=== PATIENT | male | born 1945 | race Caucasian/White ===

== ENCOUNTER 2017-10-30 15:03 | Inpatient (IN) | payer MEDICARE ==
[~2017-10-30] VITALS: Ht 170.2 cm; Wt 80.4 kg
--- NOTE | ~2017-10-30 | H ---
[facility] [place] [address] HISTORY AND PHYSICAL Name: DONTE DOBBS Room #: 211-P [facility] IN M.R.#: [id number] Admission: 10/30/17 Attend Phys: Manish Cole MD, FA Discharge: 11/01/17 Date of : 49 Report #: [id number] THIS REPORT FOR: //name// CC: Manish Evans DATE OF SERVICE: 10/30/2017 PRIMARY CARE PHYSICIAN: Dr. Devante Evans in [place], [place] HISTORY OF PRESENT ILLNESS: The patient is a 72-year-old white male who was admitted after he was noted to be in heart block. The patient has a known history of a right bundle-branch block. Previous coronary artery calcium score was abnormal. However, he had a nuclear stress test in 2010 that showed no evidence of ischemia. A couple of years ago, he was having knee surgery and because of urinary difficulty, had an ultrasound that showed evidence of an abdominal aortic aneurysm. He eventually had an abdominal aortic aneurysm stent graft placed at [facility] by Dr. Cannon. He has been followed by Dr. Cannon since that time. This past year he had his gallbladder removed in [place], [place]. Recently, the patient apparently had flu-like symptoms with a cough that resolved. However, recently he has felt fatigued. On his fit day his heart rate was noted to be in the 40s. He went to see his primary care physician in [place] today. He was noted to have a heart rate in the 40s. His ECG was faxed to my office. He was found to have evidence of heart block. I recommended he come to the hospital and be admitted for pacemaker insertion. The patient does have occasional chest pain, although it is not exertional. He does get short of breath when he exerts himself, has had no edema. He denied any palpitations, but has felt fatigued recently. PAST MEDICAL HISTORY: Otherwise significant for back surgeries, hernia repair, hemicolectomy for polyp. He has a history of hypertension, chronic back pain. MEDICATIONS: Consists of aspirin, hydrochlorothiazide, oxybutynin for incontinence, oxycodone for chronic back pain, enalapril, Flomax. ALLERGIES: He has no known drug allergies. FAMILY HISTORY: His mother had a heart attack. SOCIAL HISTORY: He is . He and his live in [place], [place]. He is retired from [employer]. Smokes half pack of cigarettes a day. No alcohol abuse. REVIEW OF SYSTEMS: He has had no history of stroke. He apparently did have a carotid Doppler by Dr. Cannon in the past. He denies chronic cough. No history of peptic ulcer disease, liver disease, kidney disease. He does wear glasses. He has chronic back pain, prostatism. No chronic skin condition. No [facility] [address] [place] [address] HISTORY AND PHYSICAL Name: DONTE DOBBS Room #: 211-P [facility] IN M.R.#: [id number] Admission: 10/30/17 Attend Phys: Manish Cole MD, FA Discharge: 11/01/17 Date of : 49 Report #: [id number] psychiatric illness. PHYSICAL EXAMINATION: GENERAL: Revealed an elderly male, appeared in no distress. VITAL SIGNS: His blood pressure 130/60, pulse is 36. HEENT: Mucous members are moist. He is anicteric. Conjunctivae pink. NECK: Supple. No jugular vein distention. No carotid bruits. CHEST: Clear to auscultation. CARDIAC: Regular bradycardia, grade 2 systolic ejection murmur. ABDOMEN: Soft. EXTREMITIES: Had no edema. Dorsalis pedis pulse 1+ bilaterally. SKIN: Cool and dry. NEUROLOGIC: Nonfocal. LYMPH: No adenopathy. MUSCULOSKELETAL: No joint effusion. His ECG from earlier today shows sinus rhythm with right bundle-branch block, left anterior fascicular block and episodes of 2:1 AV block consistent with Mobitz type 2 second degree AV block. LABORATORY DATA: Lab work today, he has a white blood cell count 8.7, hemoglobin 14.7. Urinalysis is negative for protein, 1+ blood, positive nitrites, 2+ leukocytes. There are few squamous cells. IMPRESSION AND RECOMMENDATIONS: 1. Mobitz type 2 second degree atrioventricular block. Recommend permanent pacemaker. 2. Hypertension. The patient is on a diuretic and MONAE inhibitor. 3. Previous placement of an abdominal aortic aneurysm stent graft. The patient is followed by Dr. Cannon. 4. Tobacco abuse. 5. Chronic back pain. 6. Prostatism. 7. Pyuria. Recommend urine culture. <ELECTRONICALLY SIGNED> By: Manish Cole MD, [facility] 11/01/17 1305 1717 1735 Manish Cole MD, FAC /nt
--- NOTE | ~2017-10-30 | CATHLAB ---
[facility] [address] [place] [address] INVASIVE PROCEDURE REPORT Name: DONTE DOBBS Room #: 211-P [facility] IN ..#: [id number] Admission: 10/30/17 Attend Phys: Manish Cole MD Discharge: Date of : 49 Date of Service: 10/31/17 1544 Report #: [id number] THIS REPORT FOR: //name// APPROVED REPORT Study performed: 10/31/2017 07:19:42 Patient Status: In-Patient Room #: Exam: Insertion of Dual Chamber Permanent Pacemaker Indications: 2nd Degree Mobitz II The patient is a 72 year-old male with a history of 2nd Degree Mobitz II. Procedure The patient underwent informed consent. We discussed the details of the procedure including the risks, which include, but not limited to bleeding, infection, vascular damage, cardiac perforation, and pneumothorax. He understood these risks and was willing to proceed. As such, he was brought to the EP/Cardiac Catheterization laboratory in a fasting and sedated state and prepped and draped in a sterile fashion, received IV antibiotics prior to initiation of the procedure and a venogram was performed showing patency of the left axillary vein. The patient underwent conscious sedation, with no related complications. The patient was brought to the EP/Cardiac Catheterization laboratory and the left chest and shoulder were prepped and draped in a sterile manner. During this case, Fluoroscopy and low osmolar contrast were used for imaging. The left subclavian region was infiltrated with 2% Lidocaine subcutaneous anesthesia. A transverse incision was made in the left upper chest cavity. The subcutaneous pocket was formed via blunt dissection. Percutaneous venous access was achieved and an introducer sheath was inserted into the left Subclavian vein. Sheaths were positions using the modified Seldinger technique Through the introducer sheaths the atrial and ventricular lead wires were positioned in the right atrial appendage and right ventricular apex respectively. Utilizing fluoroscopic guidance, the atrial and ventricular lead wires were advanced over the wires and positioned in the right atria and right ventricle respectively. Capturing and sensing thresholds were verified. [facility] [address] [place] [address] INVASIVE PROCEDURE REPORT Name: DONTE DOBBS Room #: 211-P [facility] IN ..#: [id number] Admission: 10/30/17 Attend Phys: Manish Cole MD Discharge: Date of : 49 Date of Service: 10/31/17 1544 Report #: [id number] Electrode Parameters P Wave: 3.3 mv R Wave: 8.0 mv Atrial Threshold: 0.9 v Ventricular Threshold: 1.0 v Atrial Resistance: 775 ohm Ventricular Resistance: 455 Dual Chamber The atrial and ventricular leads were then secured using 2.0 ethibond sutures. The subcutaneous pocket was irrigated with ancef antibiotic solution.The atrial and ventricular leads were attached to the appropriate receptacles on the pulse generator and set screws firmly tightened to insure adequate contact and stability. The lead and pulse generator were placed into the subcutaneous pocket. Sharp and sponge counts were confirmed to be correct. At this time the pocket was closed subcutaneously with a 0 Vicryl and the skin was closed with a 4.0 Vicryl. The operative site was dressed in sterile fashion with skin affix and the patient was transferred to the floor in stable condition. Complications The patient tolerated the procedure well and there were no complications associated with the procedure. Findings Specimens Removed: No Estimated Blood Loss: 15 cc Conclusion successful placement of a dual chamber pacemaker and leads <ELECTRONICALLY SIGNED> By: Manish Cole MD, FACC 10/31/17 1544 1544 1544 Manish Cole MD, FACC /INF
--- NOTE | ~2017-10-30 | D ---
[facility] [address] [place] [address] DISCHARGE SUMMARY Name: DONTE DOBBS Room #: 211-P [facility] IN .R.#: [id number] Admission: 10/30/17 Attend Phys: Manish Cole MD, FA Discharge: 11/01/17 Date of : 49 Report #: [id number] THIS REPORT FOR: //name// CC: Manish Evans MD DATE OF SERVICE: 11/01/2017 DISCHARGE DIAGNOSES: 1. Mobitz type 2 second degree AV block. 2. Hypertension. 3. Previous placement of an abdominal aortic aneurysm stent graft. 4. Tobacco abuse. 5. Chronic back pain. 6. Urinary tract infection. CONSULTANTS: None. PROCEDURES: Placement of a permanent MRI compatible dual chamber Biotronik pacemaker. HISTORY OF PRESENT ILLNESS: The patient is a 72-year-old white male who was admitted to the hospital after he was noted to be in second-degree AV block. The patient has a known history of a left anterior fascicular block and right bundle branch block. Previous nuclear stress test in 2010 showed no ischemia. He had previous placement of an abdominal aortic aneurysm stent graft at [facility] by Dr. Cannon. A year ago he underwent cholecystectomy in [place], [place]. Recently, he noticed a cough that resolved. However, recently he felt fatigued and on his Fitbit noticed his heart rate was in the 40s. He went to see his primary care physician in [place], [place]. He was noted to have Mobitz type 2 second degree AV block with a heart rate in the 40s. I recommended that he be admitted to the hospital for pacemaker insertion. The patient noted occasional chest pain, but it was nonexertional. He does get short of breath with exertion, but has had no edema. Denied palpitations. PAST MEDICAL HISTORY: Otherwise significant for 4 back surgeries, chronic back pain, hernia repair, hemicolectomy for polyp, hypertension. He has a history of difficulty voiding and has to perform straight catheterization intermittently twice a day. MEDICATION: On admission included aspirin, hydrochlorothiazide, oxybutynin, oxycodone, enalapril, Flomax. ALLERGIES: He had no known drug allergies. [facility] [address] [place] [address] DISCHARGE SUMMARY Name: DONTE DOBBS Room #: 211-P [facility] IN [facility].#: [id number] Admission: 10/30/17 Attend Phys: Manish Cole MD, Discharge: 11/01/17 Date of : 49 Report #: [id number] PHYSICAL EXAMINATION: VITAL SIGNS: On admission, his blood pressure 130/60, pulse is 36. CHEST: Clear to auscultation. CARDIAC: Regular bradycardia. ABDOMEN: Soft. EXTREMITIES: Had no edema. LABORATORY DATA: ECG showed sinus rhythm, right bundle branch block, left anterior fascicular block, episodes of 2:1 AV block consistent with Mobitz type 2 second degree AV block. His workup, he had a chest x-ray on admission that showed normal heart size and clear lung obando. His lab work, sodium 140, creatinine 1.0, potassium 4.0, glucose 88. Liver function studies were normal. Cholesterol 152, triglyceride 179, HDL 25, LDL 92. White blood cell count 8.7, hemoglobin 14.7. TSH 2.8. Urinalysis was positive for leukocytes and many bacteria. HOSPITAL COURSE: The patient was felt to have high-degree AV block. There was no obvious cause. I recommended pacemaker insertion. The following day, he was taken to the EP lab and I inserted a permanent dual chamber MRI compatible Biotronik pacemaker. He tolerated the procedure well. He remained AV sequentially paced after the pacemaker was inserted. Prior to discharge, he was ambulating, had no further complaints. He continued to straight catheterize himself. Urine cultures showed greater than 100,000 gram-negative rods. The patient was felt to have a urinary tract infection. Followup chest x-ray after the pacemaker was inserted showed no pneumothorax. There was normal positioning of the atrial and ventricular leads. The patient was discharged on his home medications that consisted of one aspirin a day, hydrochlorothiazide, oxybutynin, oxycodone, enalapril and Flomax. I strongly recommended he attempt to stop smoking. He is also discharged on Cipro 250 mg twice day for 5 days because of urinary tract infection. He was discharged to return to care of Dr. Evans for routine medical care. He was sent home with a transmitter so that his pacemaker can be interrogated every night at 2:00 a.m. He is scheduled to see me back in the cardiology clinic in 2 weeks for followup of his pacemaker. He continues to see Dr. Cannon in followup of his abdominal aortic aneurysm stent graft. I did recommend he follow up with his urologist because of his urinary tract infection. At the time of discharge, the patient was ambulating, eating well and has no further complaints. He was P-wave sensing and ventricular capture on the monitor. His vital signs, he had a blood pressure of 140/80, pulse was 60 and he was afebrile. He did undergo an echocardiogram during his hospitalization that showed an ejection fraction of 60%, left atrial enlargement, aortic sclerosis. <ELECTRONICALLY SIGNED> By: Manish Cole MD, [facility] 11/02/17 0812 1259 1319 Manish Cole MD, FACC /nt
--- NOTE | ~2017-10-30 | 2DMMODE ---
[facility] [address] [place] [address] 2 D/M-MODE ECHOCARDIOGRAM Name: DOBBSDONTE Room #: 211-P [facility] IN M.R.#: [id number] Admission: 10/30/17 Attend Phys: Manish Cole MD Discharge: Date of : 49 Date of Service: 10/31/17 1531 Report #: [id number] THIS REPORT FOR: //name// APPROVED REPORT Study performed: 10/31/2017 13:38:24 EXAM: Comprehensive 2D, Doppler, and color-flow Echocardiogram Patient Location: Bedside Room #: 211 Status: routine BSA: 1.91 HR: 65 bpm BP: 136/91 mmHg Rhythm: Pacemaker Other Information Study Quality: Adequate Technically limited study due to lung artifact and limited mobility s/p pacemaker placement.. Indications Heart block status post pacemaker placement. 2D Dimensions RVDd: 37.55 mm LVEF(%): 69.09 (>50%) IVSd: 9.64 (7-11mm) LVOT Diam: 21.33 (18-24mm) LVDd: 48.74 mm PWd: 10.28 (7-11mm) LVDs: 29.80 (25-40mm) Aortic Root: 35.44 mm Rooney's LVEF: 69.09 % Volumes Left Atrial Volume (Systole) Single Plane 4CH: 44.75 mL Single Plane 2CH: 64.91 mL LA ESV Index: 32.00 mL/m2 Aortic Valve AoV Peak Dougie.: 1.72 m/s AO Peak Gr.: 13.05 mmHg LVOT Max P.96 mmHg LVOT Max V: 1.22 m/s JF Vmax: 2.53 cm2 Mitral Valve [facility] [place] [address] [place] [address] 2 D/M-MODE ECHOCARDIOGRAM Name: RINKUDONTE Mark Room #: 211-P ADM IN ..#: [id number] Admission: 10/30/17 Attend Phys: Manish Cole MD Discharge: Date of : 49 Date of Service: 10/31/17 1531 Report #: [id number] E/A Ratio: 0.8 MV Decel. Time: 230.50 ms MV E Max Dougie.: 0.69 m/s MV A Dougie.: 0.84 m/s MV PHT: 66.85 ms IVRT: 106.11 ms Pulmonary Valve PV Peak Dougie.: 1.30 m/s PV Peak Gr.: 6.80 mmHg Pulmonary Vein P Vein S: 0.58 m/s P Vein D: 0.44 m/s P Vein S/D Ratio: 1.32 Tricuspid Valve TR Peak Dougie.: 2.13 m/s RAP Estimate: 10.00 mmHg TR Peak Gr.: 18.10 mmHg PA Pressure: 28.00 mmHg Left Ventricle The left ventricle is normal size. There is normal LV segmental wall motion. Mild basal septal hypertrophy is present. Left ventricular systolic function is normal. LVEF is 60%. Mild diastolic dysfunction is present (impaired relaxation pattern). Right Ventricle The right ventricle is normal size. The right ventricular systolic function is normal. Pacemaker lead is present in the right ventricle. Atria Left atrium is mildly dilated. The right atrium size is normal. Aortic Valve Aortic valve is mildly calcified. No aortic regurgitation is present. There is no aortic valvular stenosis. Mitral Valve The mitral valve is normal in structure. Mild mitral regurgitation. No evidence of mitral valve stenosis. Tricuspid Valve The tricuspid valve is normal in structure. Trace tricuspid regurgitation. Estimated PAP is 28mmHg. [facility] [address] [place] [address] 2 D/M-MODE ECHOCARDIOGRAM Name: DONTE DOBBS Room #: 211-P [facility] IN ..#: [id number] Admission: 10/30/17 Attend Phys: Manish Cole MD Discharge: Date of : 49 Date of Service: 10/31/17 1531 Report #: [id number] Pulmonic Valve The pulmonary valve is normal in structure. Trace pulmonic regurgitation. Great Vessels The aortic root is normal in size. Ascending and descending aorta are not well visualized. IVC is dilated and collapses <50% with inspiration. Pericardium There is no pericardial effusion. <Conclusion> LVEF is 60%. Left atrium is mildly dilated. Aortic valve is mildly calcified. Mild mitral regurgitation. <ELECTRONICALLY SIGNED> By: Manish Cole MD, FACC 10/31/17 1531 [id number] Manish Cole MD, FACC /INF
[2017-10-30 16:24] VITALS: BP 139/71
[2017-10-30 16:33] LABS: URINE BILIRUBIN NEGATIVE (Negative); URINE BLOOD 1+ (Negative); URINE CLARITY CLEAR; URINE COLOR YELLOW; URINE GLUCOSE-RANDOM* NEGATIVE (Negative); URINE KETONES NEGATIVE (Negative); URINE LEUKOCYTES 2+ (Negative); URINE NITRITE POSITIVE (Negative); URINE PROTEIN (DIPSTICK) NEGATIVE (Negative); URINE SPECIFIC GRAVITY 1.015 (1.005-1.035); URINE UROBILINOGEN 0.2 E.U./dl (0.2-1.0)
[2017-10-30 16:44] LABS: BACTERIA >30 Many /HPF (None Seen); CASTS None Seen /LPF (None Seen); CRYSTALS None Seen /LPF (None Seen); SQUAMOUS 0-3 Few /LPF (0-3); URINE RBC 3-10 Few /HPF (0-2)
[2017-10-30 16:54] LABS: HEMOGLOBIN 14.7 gm/dL (14.0-18.0); MCH 29.8 pg (26.0-34.0); MCHC 34.2 g/dL (28.0-37.0); MCV 87.1 fL (80.0-100.0); RBC 4.94 mil/uL (4.50-6.00); WBC 8.7 thou/uL (4.0-11.0)
[2017-10-30 17:10] LABS: ALBUMIN 3.6 g/dL (3.4-5.0); APTT 28.3 Seconds (24.5-32.8); INR 1.1; TOTAL BILIRUBIN 0.5 mg/dL (<0.1-1.0); TOTAL PROTEIN 6.9 g/dL (6.4-8.2)
[2017-10-30 20:20] VITALS: BP 131/71
[2017-10-30 23:11] VITALS: BP 157/62
[2017-10-31 04:34] LABS: CHOLESTEROL 152 mg/dL (<200); HDL CHOLESTEROL 25 mg/dL (>40); LDL CHOLESTEROL 92 mg/dL (<100); TC:HDL 6.1 Ratio (Not establshd); TRIGLYCERIDE 179 mg/dL (<150); VLDL 36 mg/dL (<40)
[2017-10-31 04:36] LABS: SERUM ASSESSMENT Clear
[2017-10-31 04:40] VITALS: BP 132/59
[2017-10-31 07:48] VITALS: BP 120/69
[2017-10-31 12:03] VITALS: BP 136/91
[2017-10-31 15:55] VITALS: BP 136/82
[2017-10-31 20:41] VITALS: BP 138/85
[2017-11-01 00:55] VITALS: BP 159/85
[2017-11-01 05:13] VITALS: BP 145/81
[2017-11-01 09:25] VITALS: BP 145/81
[2017-11-01 09:40] VITALS: BP 145/81
== END 2017-11-01 10:00 | disposition home or self-care (01) | DRG 243 ==
LOC: 2N 15:03 → ENTRNSPT 11-01 09:51 → EDTRNSPTSTS 11-01 09:53 → 2N 11-01 10:00
PROVIDERS: Internal Medicine Cardiovascular Disease
PROC: 02H63JZ Insertion of Pacemaker Lead into Right Atrium, Percutaneous Approach (ICD-10-PCS; principal; 2017-10-31)
PROC: 02HK3JZ Insertion of Pacemaker Lead into Right Ventricle, Percutaneous Approach (ICD-10-PCS; principal; 2017-10-31)
PROC: 0JH606Z Insertion of Pacemaker, Dual Chamber into Chest Subcutaneous Tissue and Fascia, Open Approach (ICD-10-PCS; principal; 2017-10-31)
DX: I44.1 Atrioventricular block, second degree (principal); N39.0 Urinary tract infection, site not specified; I10 Essential (primary) hypertension; G89.29 Other chronic pain; N40.0 Benign prostatic hyperplasia without lower urinary tract symptoms; M54.9 Dorsalgia, unspecified; Z82.49 Family history of ischemic heart disease and other diseases of the circulatory system
CPT/HCPCS: 10797; 56524